=== PATIENT | male | born 1955 | race Caucasian/White ===

== ENCOUNTER → 2016-07-28 | Outpatient (CLI) | payer BC ==
[2016-07-28 10:17] LABS: ALT 32 U/L (21-72); AST 26 U/L (17-59); Anion Gap 9 mmol/L; Blood Urea Nitrogen 29 mg/dL (9-20); Carbon Dioxide 24 mmol/L (22-30); Chloride 104 mmol/L (98-107); Cholesterol 186 mg/dL (<200); Glucose 108 mg/dL (74-99); HDL Cholesterol 53 mg/dL (40-60); Non-African American GFR(MDRD) >60 (>60 ml/min/1.73 sqM); Sodium 137 mmol/L (137-145); Triglycerides 142 mg/dL (<150)
[2016-07-28 10:34] LABS: Potassium 4.3 mmol/L (3.5-5.1)
== END ==
LOC: LABWHC1 09:34
PROVIDERS: ATTEND Internal Medicine Interventional Cardiology
DX: E78.2 Mixed hyperlipidemia (principal); I10 Essential (primary) hypertension
CPT/HCPCS: 36415; 80048; 80061; 84450; 84460

== ENCOUNTER 2016-09-01 05:55 | Inpatient (IN) | payer BC ==
[2016-08-27 14:46] VITALS: BMI 41.8
[~2016-09-01 05:55] MED LIST: ACETAMINOPHEN TAB 500 MG TAB PO ONE; DEXAMETHASONE SOD PHOSPHATE 10 MG/ML 1 ML VIAL IV ONE; MELOXICAM 7.5 MG TAB PO ONE; ONDANSETRON 4 MG/2 ML VIAL IVP ONE; TRANEXAMIC ACID 1,000 MG in SODIUM CHLORIDE 0.9% 100 ML IVPB ONE; ceFAZolin 3 GM in SODIUM CHLORIDE 0.9% 100 ML IVPB ONE
[2016-09-01] MEDS: LACTATED RINGERS 1,000 ML IV SCH (06:41)
[2016-09-01] MEDS ORDERED: LIDOCAINE 1% 20 ML VIAL (10MG/ML) FOR IV START INTRADERMA ONE (06:42)
[2016-09-01 07:03] LABS: INR 1.2 (<1.1); Prothrombin Time 11.8 sec (9.0-12.0)
[2016-09-01] MEDS ORDERED: PROPOFOL 10 MG/ML 20 ML VIAL IV ONE (07:10)
[2016-09-01] MEDS ORDERED: HYDROmorphone (PF) 1 MG/ML ONE (07:10)
[2016-09-01] MEDS ORDERED: SODIUM CHLORIDE 0.9% 100 ML BAG ONE (07:10)
[2016-09-01] MEDS ORDERED: TRANEXAMIC ACID 1,000 MG/10 ML VIAL ONE (07:10)
[2016-09-01] MEDS ORDERED: LIDOCAINE 1% INJ 10MG/ML (20 ML MDV) ONE (07:10)
[2016-09-01] MEDS ORDERED: ceFAZolin 3,000 MG in SODIUM CHLORIDE 0.9% IRRIGATIO 3,000 ML IRRIGATION ONE (07:10)
[2016-09-01] MEDS ORDERED: HEPARIN SODIUM,PORCINE 10,000 UNIT/ML 1 ML VIAL ONE (07:10)
[2016-09-01] MEDS ORDERED: fentaNYL (PF) 50 MCG/ML 2 ML AMP ONE (07:10)
[2016-09-01] MEDS ORDERED: SODIUM CHLORIDE 0.9% IRRIG 1,000 ML BTL IRRIGATION ONE (07:10)
[2016-09-01] MEDS ORDERED: diphenhydrAMINE 50 MG/ML 1 ML VIAL ONE (07:10)
[2016-09-01] MEDS ORDERED: MIDAZOLAM 2 MG/2 ML VIAL ONE (07:10)
[2016-09-01] MEDS ORDERED: KETAMINE 10 MG/ML 20 ML VIAL ONE (07:10)
[2016-09-01] MEDS: ROPIVACAINE 246.25 MG, EPINEPHrine 0.5 MG, KETOROLAC 30 MG, cloNIDine HCL/PF 80 MCG, WA... MISCELLANE ONE ×10 (07:41→08:45)
[2016-09-01] MEDS ORDERED: HYDROmorphone 1 MG/ML 1 ML SYRINGE IVP PRN ×3 (09:17)
[2016-09-01] MEDS ORDERED: NALOXONE 0.4 MG/ML 1 ML VIAL IV PRN (09:17)
[2016-09-01] MEDS ORDERED: HYDROcodone/APAP 5-325MG 1 EACH TAB PO PRN (09:17)
[2016-09-01] MEDS ORDERED: MAGNESIUM HYDROXIDE 2,400 MG/10 ML CUP PO PRN (09:17)
[2016-09-01] MEDS ORDERED: ONDANSETRON 4 MG/2 ML VIAL IVP PRN (09:17)
[2016-09-01] MEDS ORDERED: DIAZEPAM 5 MG TAB PO PRN (09:17)
--- NOTE | 2016-09-01 09:20 | P.OP ---
Date of Procedure: 09/01/16 Preoperative Diagnosis: Severe osteoarthritis right hip Postoperative Diagnosis: Severe osteoarthritis right hip Procedure(s) Performed: Right total hip arthroplasty with a direct anterior approach Implants: Vega and nephew Polarstem size 6 standard Vega [employer] Nephew R3, 3 hole acetabular shell, 54 mm Vega [employer] Nephew reflection 6.5 mm cancellus screw, 20 mm 2 Vega [employer] Nephew R3, XLPE 20 acetabular liner Vega & Nephew Oxinium femoral head 36 m, +0 All components were press-fit. The articulation is ceramic on polyethylene. Anesthesia: spinal Surgeon: Kenneth Jauregui Director Of Customer Acquisition #1: Adilene Bledsoe Director Of Customer Acquisition #2: Tina Harrell Estimated Blood Loss (ml): 450 (180 mL returned with Cell Saver) Pathology: other (Femoral head) Condition: stable Disposition: PACU Indications for Procedure: After failure of conservative treatment we discussed the surgical and nonsurgical treatment options at length. Patient wishes to proceed with a total hip arthroplasty with a direct anterior approach. Complications specific to this procedure were discussed at length, including but not limited to infection, leg length discrepancy, dislocation, and nerve injury. Patient is aware of all these complications and informed consent was obtained Operative Findings: The operative findings are consistent with severe osteoarthritis of the right hip Description of Procedure: Patient was seen and evaluated in the preoperative area, consent was reviewed, and the surgical site was marked with a skin marker. Patient was then brought to the operating room and given prophylactic antibiotics intravenously. 1 g of Tranexamic acid was also given. A spinal anesthetic was administered by the anesthesia department. The patient was then placed on the Chalmers table with the bony prominences well-padded. The hip area was then prepped and draped in usual sterile fashion. A universal timeout was then performed, which confirmed the patient's name, surgical site, ALLERGIES, and procedure being performed. Next the incision site was located at 1 cm distal and 1 cm lateral to the anterior superior iliac spine. The skin and subcutaneous tissues were sharply incised. Incision was carefully dissected down to the fascia overlying the tensor fascia mariella muscle. This fascia was then incised in line with the incision. Next, using blunt finger dissection, the tensor fascia mariella muscle was dissected off its investing fascia. The muscle was then carefully retracted laterally with a cobra retractor over the lateral neck of the femur. Next, the circumflex vessels were identified and cauterized using the AquaMantis device. The anterior hip capsule was then exposed. The capsule was then opened and an inverted T fashion. Retention sutures were placed in the inferior arms of the capsule. Cobra retractors were then placed intracapsularly. The proximal femur was then visualized. The femoral neck was then osteotomized appropriate level above the lesser trochanter. Small amount of traction was placed with the Chalmers table. A small wedge of bone was then removed from the remaining femoral head. Next, using a corkscrew femoral head was easily removed from the acetabulum. On gross visual inspection, the femoral head had complete loss of articular cartilage in multiple periarticular osteophytes. Attention was then turned to the acetabulum. the acetabulum was exposed and any remaining labrum was excised. Sequential reaming of the acetabulum was performed using fluoroscopic guidance. When the appropriate size was reached, a trial was then placed. The position and fit of the trial was checked with fluoroscopy. The trial was then removed. Then, using fluoroscopic guidance, the final implant was impacted at 20 of anteversion and 40 of abduction, and fully seated in the acetabulum. 2 screws were then placed in the acetabulum. Again fluoroscopy was used to check position of the screws. Next, the liner was then impacted, with a 20 elevated liner located in the anterior superior quadrant. Component locking was confirmed. Attention was then directed to the femur. With the aid of the Chalmers table, the femur was externally rotated to approximately 130, extended, and abducted under the opposite leg. A side hook was then placed under the proximal femur, and the side hook elevator was used to elevate the proximal femur. Retractors were then placed. A capsular release was performed, as well as a release of the conjoined tendon, which afforded excellent visualization of the proximal femur. Next, a box osteotome was used to lateralize the proximal femur. A merchandise supervisor was then used to locate the femoral canal. Sequential broaching was then performed with appropriate size which afforded excellent fixation in the proximal femur. A trial was then placed with appropriate head and neck, and the hip was gently reduced with the aid of the Chalmers table. Fluoroscopy was then used to check position of the components, as well as to ensure equal leg lengths. The hip was then gently dislocated and the trials were then removed. Final implants were then impacted and the hip was again reduced. Final fluoroscopic x-rays confirmed that the components were in anatomic position, as well as equal leg lengths. The hip was also taken through range of motion, and found to be stable. The hip was then copiously irrigated with antibiotic solution with pulsatile lavage. The hip was then irrigated with Irrisept solution. The soft tissues were then injected with a ropivacaine solution, which consisted of 246.25 mg of ropivacaine, 0.5 mg of epinephrine, 30 mg of Toradol, 80 g of clonidine, and 48.45 mL of sterile water, for a total of 100 mL of fluid injected. A second dose of 1 g of Tranexamic acid was also given. the fascia was then closed with 2-0 strata fix suture. The subcutaneous tissue was closed with 3-0 Vicryl. The subcuticular tissue was closed with 3-0 strata fix suture. The skin was then closed with Dermabond tape. The patient was then transferred to the recovery room in stable condition. The assistant women's tennis coach SHIRA Loya was required due to the complexity of surgery , and the need for skilled rn surgical pcu for positioning, draping, exposure , retraction, and closure of the wound.
--- NOTE | 2016-09-01 09:26 | FL ---
Fluoroscopy INDICATION: Pain FINDINGS: Fluoroscopy time: 54 seconds. Images obtained: 0. IMPRESSIONS: 1. Documentation of fluoroscopy.
--- NOTE | 2016-09-01 09:27 | XR ---
Fluoroscopy INDICATION: Pain FINDINGS: Fluoroscopy time: 54 seconds. Images obtained: 3. IMPRESSIONS: 1. Documentation of fluoroscopy.
[2016-09-01] MEDS: HYDROmorphone 1 MG/ML 1 ML SYRINGE IVP PRN ×2 (09:40→09:49)
--- NOTE | 2016-09-01 10:06 | XR ---
Fluoroscopy INDICATION: Pain FINDINGS: Images obtained: 1. No fracture is evident. IMPRESSIONS: 1. Documentation of fluoroscopy. 2. No fracture post right hip replacement.
[2016-09-01] MEDS: SODIUM CHLORIDE 0.9% 1,000 ML IV SCH ×2 (10:37→21:05)
[2016-09-01] MEDS: HYDROcodone/APAP 5-325MG 1 EACH TAB PO PRN ×3 (13:00→23:36)
[2016-09-01] MEDS: ceFAZolin 2 GM in SODIUM CHLORIDE 0.9% 100 ML IVPB SCH ×2 (15:57→23:37)
[2016-09-01] MEDS ORDERED: WARFARIN 7.5 MG TAB PO ONE (18:00)
--- NOTE | 2016-09-01 18:23 | CONS ---
DATE OF CONSULTATION: 09/01/2016 REASON FOR CONSULTATION: Advice regarding hypertension and other medical issues, requested by Orthopedic Surgery. HISTORY OF PRESENT ILLNESS: This 60-year-old gentleman with a past medical history hypertension, hyperlipidemia, history of DJD, history of sleep apnea, history of back surgery, being followed by Dr. Livingston in the outpatient setting, underwent right total hip joint arthroplasty with a direct anterior approach for severe DJD of the right hip by Dr. Jauregui. There is no history of any fever, rigor, or chills. No history of any headache, loss of consciousness. No chest pain, palpitations, shortness of breath, hematochezia, melena at this time. PAST MEDICAL HISTORY: 1. History of hypertension. 2. Hyperlipidemia. 3. DJD. 4. Sleep apnea. 5. Back surgery. HOME MEDICATIONS: 1. Coumadin 5 mg p.o. Wednesday, , and Coumadin 7.5 mg Wednesday, Wednesday, Wednesday, Wednesday, Wednesday. 2. Flomax 0.4 mg at bedtime. 3. Lopressor 25 mg p.o. b.i.d. ALLERGIES: MORPHINE. FAMILY HISTORY: Cancer in the family. SOCIAL HISTORY: Previous history of smoking. No current smoking or alcohol intake. REVIEW OF SYSTEMS: ENT: No diminishing hearing. No diminished vision. CARDIOVASCULAR: No angina, palpitations. RESPIRATORY SYSTEM: As mentioned earlier. GI: As mentioned earlier. : No dysuria. NERVOUS SYSTEM: No numbness or weakness. ALLERGY/IMMUNOLOGY: No asthma, hayfever. MUSCULOSKELETAL: As mentioned earlier. HEMATOLOGY/ONCOLOGY: No history of anemia. ENDOCRINE: No history of diabetes, hypothyroidism. CONSTITUTIONAL: As mentioned earlier. DERMATOLOGY: Negative. RHEUMATOLOGY: Negative. PSYCHIATRY: As mentioned earlier. PHYSICAL EXAMINATION: Patient is alert and oriented x3. Pulse 59. Blood pressure 107/64. Respiratory rate 20. Temperature normal. Pulse ox 94% on room air. HEENT: Conjunctivae normal. Oral mucosa moist. NECK: No jugular venous distention. No carotid bruit. No lymph node enlargement. CARDIOVASCULAR SYSTEM: S1 normal. S2 normal. No S3. No S4. Ejection systolic murmur present. RESPIRATORY SYSTEM: Breath sounds diminished at the bases. No rhonchi. No crackles. ABDOMEN: Soft, non-tender. No mass palpable. LEGS: No edema. No swelling. Status post right hip arthroplasty. NERVOUS SYSTEM: Higher functions as mentioned earlier. Moves all 4 limbs. No focal motor or sensory deficit. LYMPHATICS: No lymph node palpable in neck, axillae or groin. SKIN: No ulcer, rash, bleeding. LABS: INR is 1.2. ASSESSMENT: 1. Status post right total hip joint arthroplasty. 2. Hypertension. 3. Hyperlipidemia. 4. Degenerative joint disease. 5. Sleep apnea. 6. History of back surgery. 7. History of aortic valve replacement. 8. Remote history of nicotine dependence. 9. Obesity with body mass index of 41.8. RECOMMENDATIONS AND DISCUSSION: In this 60-year-old gentleman who presented after surgery, at this time I recommend to continue current medications, continue symptomatic treatment. I recommend DVT prophylaxis, incentive spirometry. Resume the home medications. Coumadin may be reinitiated when okay with Orthopedics. INR is 1.2. Continue to monitor. Further recommendations to follow.
[2016-09-01] MEDS: TAMSULOSIN 0.4 MG CAP.ER.24H PO SCH (21:04)
[2016-09-01] MEDS: METOPROLOL TARTRATE 25 MG TAB PO SCH (21:04)
[2016-09-01] MEDS: SENNOSIDES-DOCUSATE SODIUM 1 EACH TAB PO SCH (21:04)
[2016-09-01] MEDS: DIAZEPAM 5 MG TAB PO PRN (21:04)
[2016-09-01] MEDS: hydrOXYzine PAMOATE 25 MG CAP PO PRN (23:37)
[2016-09-02] MEDS: LACTATED RINGERS 1,000 ML IV SCH (00:39)
[2016-09-02] MEDS: HYDROcodone/APAP 5-325MG 1 EACH TAB PO PRN ×2 (05:47→11:11)
[2016-09-02] MEDS: hydrOXYzine PAMOATE 25 MG CAP PO PRN ×3 (05:48→16:29)
[2016-09-02 07:58] LABS: INR 1.1 (<1.1); Prothrombin Time 11.3 sec (9.0-12.0)
[2016-09-02 08:01] LABS: Basophils % (A) 0 %; CH 27.5; Eosinophils # (A) 0.1 k/uL (0-0.7); Eosinophils % (A) 1 %; HCT 36.2 % (39.0-53.0); HDW 2.68; Luc # (Auto) 0.17; Luc % (Auto) 2; Lymphocytes # (A) 1.2 k/uL (1.0-4.8); Lymphocytes % (A) 12 %; MCH 28.4 pg (25.0-35.0); MCHC 33.8 g/dL (31.0-37.0); MCV 83.9 fL (80.0-100.0); Mean Platelet Volume 6.7; Monocytes # (A) 0.7 k/uL (0-1.0); Monocytes % (A) 7 %; Neutrophils # (A) 7.7 k/uL (1.3-7.7); Neutrophils % (A) 78 %; RBC 4.31 m/uL (4.30-5.90); RDW 14.6 % (11.5-15.5); WBC 9.9 k/uL (3.8-10.6)
[2016-09-02 08:03] LABS: HGB 12.2 gm/dL (13.0-17.5)
--- NOTE | 2016-09-02 08:12 | P.PN ---
Subjective Principal diagnosis: Status post total right hip arthroplasty. This is a well-appearing 60-year-old male who is status post total right hip arthroplasty. This is postop day #1. Patient was seen and evaluated at bedside by Dr. Jauregui. Patient has been up and walking, but patient has not been evaluated by physical therapy yet. Patient has no new complaints and is doing well. Objective - Vital Signs Vital signs: Vital Signs Temp 98.6 F 09/02/16 01:52 Pulse 63 09/02/16 01:52 Resp 16 09/02/16 01:52 BP 138/79 09/02/16 01:52 Pulse Ox 97 09/02/16 01:52 Intake & Output 09/01/16 09/02/16 09/02/16 18:59 06:59 18:59 Intake Total 991 2009 Output Total 450 Balance 541 2009 Weight 136.078 kg Intake: IV 751 Intake, IV Titration 880 Amount Sodium Chloride 0.9% 1, 880 000 ml @ 80 mls/hr IV . [id number] ROD Rx#:[id number] Oral 240 1130 Output: Estimated Blood Loss 450 Other: Voiding Method Toilet # Voids 2 1 - Exam Vital signs are stable. Calf is soft and nontender. Dressing is clean, dry, and intact. Neurovascular status intact. Patient has full foot and ankle motion. - Labs CBC & Chem 7: 09/02/16 07:28 Labs: Abnormal Lab Results - Last 24 Hours (Table) 09/02/16 Range/Units 07:28 Hgb 12.2 L D (13.0-17.5) gm/dL Hct 36.2 L (39.0-53.0) % Assessment and Plan (1) History of total right hip arthroplasty Status: Acute (2) Osteoarthritis of right hip Status: Acute Plan: Continue routine postop care. Continue antocoagulation. Weightbearing as tolerated with a walker Daily dressing changes, keep incision clean and dry Possible discharge home tomorrow.
[2016-09-02] MEDS: MELOXICAM 7.5 MG TAB PO SCH (09:25)
[2016-09-02] MEDS: METOPROLOL TARTRATE 25 MG TAB PO SCH ×2 (09:25→20:51)
[2016-09-02] MEDS: DIAZEPAM 5 MG TAB PO PRN ×2 (11:11→20:52)
[2016-09-02] MEDS: SODIUM CHLORIDE 0.9% 1,000 ML IV SCH ×2 (11:50→20:51)
[2016-09-02] MEDS ORDERED: HYDROcodone/APAP 7.5-325MG 1 EACH TAB PO PRN (14:19)
[2016-09-02] MEDS: HYDROcodone/APAP 7.5-325MG 1 EACH TAB PO PRN ×2 (16:29→20:52)
[2016-09-02] MEDS ORDERED: WARFARIN 7.5 MG TAB PO ONE (18:00)
--- NOTE | 2016-09-02 18:28 | PN ---
DATE OF SERVICE: 09/02/2016 This 60-year-old gentleman who was admitted after right total hip joint arthroplasty is being closely monitored. Patient is complaining of some pain after walking. No fever. No cough. On exam, alert and oriented x3. Pulse 73, blood pressure 130/75, respiration 19, temperature 97.9, pulse ox 96% on room air. HEENT: Conjunctivae normal. NECK: No jugular venous distention. CARDIOVASCULAR SYSTEM: S1, S2 muffled. RESPIRATORY SYSTEM: Breath sounds diminished at the bases. No rhonchi. No crackles. ABDOMEN: Soft, non-tender. LEGS: Status post right hip arthroplasty. NERVOUS SYSTEM: No focal deficit. LABS: Hemoglobin 12.2. ASSESSMENT: 1. Status post right total hip joint arthroplasty. 2. Anemia, normocytic; possible dilutional. 3. Hypertension. 4. Hyperlipidemia. 5. Degenerative joint disease. 6. Sleep apnea. 7. History of back surgery. 8. History of aortic valve replacement. 9. Remote history of nicotine dependence. 10. Obesity; body mass index of 41.8. RECOMMENDATIONS AND DISCUSSION: I recommend to continue with the current medications, continue with symptomatic treatment. otherwise, closely follow with Orthopedic Surgery. Continue the rest of the medications. Further recommendations to follow. MTDD
[2016-09-02] MEDS: SENNOSIDES-DOCUSATE SODIUM 1 EACH TAB PO SCH (20:51)
[2016-09-02] MEDS: TAMSULOSIN 0.4 MG CAP.ER.24H PO SCH (20:51)
[2016-09-03] MEDS: LACTATED RINGERS 1,000 ML IV SCH (01:28)
[2016-09-03 02:55] VITALS: RESP 16
[2016-09-03] MEDS: HYDROcodone/APAP 7.5-325MG 1 EACH TAB PO PRN ×2 (05:27→12:16)
[2016-09-03 07:35] LABS: INR 1.2 (<1.1)
[2016-09-03 08:19] VITALS: BP 117/65; PULSE 69; TEMP 98.1
--- NOTE | 2016-09-03 08:44 | P.DS ---
Providers Date of admission: 09/01/16 05:55 Expected date of discharge: 09/03/16 Attending physician: Kenneth Jauregui Consults: 09/01/16 09:17 Consult Physician Routine Consulting Provider: Shay Saldaña Consult Reason/Comments: medical management and anticoagulation Do you want consulting provider notified?: Yes Primary care physician: Kenneth Livingston - Discharge Diagnosis(es) (1) History of total right hip arthroplasty Current Visit: Yes Status: Acute (2) Osteoarthritis of right hip Current Visit: Yes Status: Acute Hospital Course: This is a 60-year-old male with known history of degenerative arthritis of the right hip. The patient presents for evaluation. After discussion and consideration patient elects to proceed with total hip arthroplasty. The patient is seen preoperatively by Dr. Jauregui and cleared for surgery. Patient is admitted to [facility] on 09/01/2016 for total hip arthroplasty. The procedures performed without complication or sequelae. The patient is doing well postoperatively. Labs and vital signs are stable on day of discharge. On day of discharge patient's hip incision is healing well. There is minimal erythema. There is no drainage noted at this time. There is minimal soft tissue swelling to the hip and thigh. Patient has full foot and ankle motion without difficulty or pain. Neurovascular status to the right lower extremity is intact. Patient is discharged home in good condition.Please see med rec for accurate list of home medications. Plan - Discharge Summary New Discharge Prescriptions: HYDROcodone/APAP 7.5-325MG [Carrier 7.5-325] 1 - 2 tab PO Q4-6H PRN #90 tab PRN Reason: Pain Sennosides-Docusate Sodium [Senokot-S] 1 tab PO BID #60 tablet Discharge Medication List Metoprolol Tartrate [Lopressor] 25 mg PO BID 08/27/16 [History] Tamsulosin [Flomax] 0.4 mg PO HS 08/27/16 [History] Warfarin Sodium [Warfarin Sodium] 7.5 mg PO SUTUWEFRSA 08/27/16 [History] Warfarin [Coumadin] 5 mg PO MOTH 08/27/16 [History] HYDROcodone/APAP 7.5-325MG [Carrier 7.5-325] 1 - 2 tab PO Q4-6H PRN #90 tab [Rx] Sennosides-Docusate Sodium [Senokot-S] 1 tab PO BID #60 tablet 09/03/16 [Rx] Follow up Appointment(s)/Referral(s): [facility], [NON-STAFF] - 1 Week Kenneth Jauregui DO [Doctor of Osteopathic Medicine] - 2 Weeks Activity/Diet/Wound Care/Special Instructions: Weightbearing as tolerated with walker May shower after 2 days if no drainage from the incision Continue anticoagulation, medicine to manage. Follow-up with [facility] in 2 weeks with any questions or concerns Discharge Disposition: HOME WITH HOME HEALTH SERVICES
[2016-09-03] MEDS: MELOXICAM 7.5 MG TAB PO SCH (09:45)
[2016-09-03] MEDS: METOPROLOL TARTRATE 25 MG TAB PO SCH (09:46)
[2016-09-03] MEDS ORDERED: WARFARIN 10 MG TAB PO ONE (18:00)
--- NOTE | 2016-09-04 07:39 | PN ---
DATE OF SERVICE: 09/03/2016 This 60-year-old gentleman who was admitted after right total hip joint arthroplasty is improving significantly. No chest pain, no palpitations, no fever. On exam, alert and oriented x3. Pulse 69, blood pressure 117/65, respirations 16, temperature 98.1. Pulse ox 92% on room air. HEENT: Conjunctivae normal. NECK: No jugular venous distention. CARDIOVASCULAR: S1 and S2, muffled. RESPIRATORY: Breath sounds diminished at the bases. No rhonchi. ABDOMEN: Soft, nontender. LEGS: Status post surgery. NERVOUS SYSTEM: No focal deficits. LABS: Hemoglobin 12.2. ASSESSMENT: 1. Status post right total hip joint arthroplasty. 2. Anemia, normocytic, possibly dilutional. 3. Hypertension, essential. 4. Hyperlipidemia. 5. History of degenerative joint disease. 6. Sleep apnea. 7. Coumadin monitoring. 8. History of back surgery. 9. History of aortic valve replacement. 10. Remote history of nicotine dependence. 11. Obesity, body mass index of 41.8. RECOMMENDATIONS AND DISCUSSION: I recommend to continue current medications, symptomatic treatment. I recommend Coumadin 10 mg today. INR is 1.2. Otherwise, I would also recommend resuming the home dose of Coumadin and continued follow-up with primary physician with close monitoring of PT, INR in 2 to 3 days. Discussed with the bilingual case manager. Discussed with staff. Further recommendations to follow.
== END 2016-09-03 12:49 | disposition home health service (06) | DRG 470 ==
LOC: 2ORMAIN 05:55 → 3SUR 09:16
PROVIDERS: ADMIT Orthopaedic Surgery; ATTEND Orthopaedic Surgery
PROC: 0SR904A Replacement of Right Hip Joint with Ceramic on Polyethylene Synthetic Substitute, Uncemented, Open Approach (ICD-10-PCS; principal; 2016-09-01 07:00)
DX: M16.11 Unilateral primary osteoarthritis, right hip (principal); Z68.41 Body mass index [BMI] 40.0-44.9, adult; I10 Essential (primary) hypertension; E78.5 Hyperlipidemia, unspecified; E66.9 Obesity, unspecified; D64.9 Anemia, unspecified; G47.30 Sleep apnea, unspecified; Z79.01 Long term (current) use of anticoagulants; Z79.899 Other long term (current) drug therapy; Z87.891 Personal history of nicotine dependence; Z95.2 Presence of prosthetic heart valve; Z88.5 Allergy status to narcotic agent
CPT/HCPCS: 73501; 85025; 85610; 86850; 86891; 86900; 86901; 88300

== ENCOUNTER → 2016-12-15 | Outpatient (CLI) | payer BC ==
--- NOTE | 2016-12-16 11:29 | NM ---
EXAMINATION TYPE: NM bone/joint limited DATE OF EXAM: 12/15/2016 COMPARISON: NONE HISTORY: Left knee pain for 6 months. Exaggerated usage of the left knee since a prior right hip repl acement in 2017. TECHNIQUE: After the intravenous administration of 25.2 mCi Tc 99m MDP. Images acquired 4.5 hours p ost injection. Multiple views of the lower limbs including both knees are submitted. No discrepancy is seen between flow between the bilateral knees. Left knee prosthesis is noted. Relat avtar symmetric uptake is seen on immediate and delayed imaging in the femoral and tibial components mo st likely relating to osteoarthritic changes. IMPRESSION: Relatively symmetric uptake in both knees most likely relating to osteoarthritic changes. Correlation with radiograph could be performed if there is clinical concern for prosthetic loosening or other evidence of infection.
== END | disposition home or self-care (01) ==
LOC: RADNMMAIN 10:49
PROVIDERS: ATTEND Orthopaedic Surgery
DX: M25.562 Pain in left knee (principal)
CPT/HCPCS: 78300; A9503

== ENCOUNTER → 2017-04-05 | Outpatient (CLI) | payer BC ==
--- NOTE | 2017-04-06 09:17 | MR ---
EXAMINATION TYPE: MR lumbar spine wo/w con DATE OF EXAM: 04/05/2017 7:37 PM COMPARISON: NONE HISTORY: Neuropathy in feet, prior surgery 1988 CONTRAST: The patient was injected with 13.5 mL intravenous Gadavist gadolinium contrast. Multiplanar, MultiSpin echo imaging of the lumbar spine was performed. L1-L2: Moderate disc desiccation. Circumferential disc bulge. Mild effacement ventral thecal sac. No evidence for herniation or central stenosis. Facet joint arthropathy without foraminal encroachment. L2-L3: Normal disc appearance without desiccation. No herniation, protrusion or disc bulging. No ca nal stenosis is present. Foramina are patent bilaterally. L3-L4: Normal disc appearance without desiccation. No herniation, protrusion or disc bulging. No ca nal stenosis is present. Foramina are patent bilaterally. L4-L5: Mild to moderate disc desiccation. Left paracentral disc protrusion. Left lateral recess steno sis. No evidence for foraminal encroachment. Mild facet joint arthropathy. L5-S1: Left hemilaminectomy change. Enhancing granulation tissue identified. Moderate disc desiccatio n. Posterior disc bulge with the annular tear. Mild effacement ventral thecal sac without central bobbi nosis or lateral recess stenosis. No tammie disc herniation. Facet joint arthropathy left greater than right. Mild left-sided foraminal encroachment. Lumbar segments are intact. No paraspinal masses are identified. Conus medullaris has a normal appe arance. IMPRESSION: 1. Multilevel degenerative disc disease. 2. Small disc protrusion paracentrally and to the left at L4-5 resulting in mild left lateral recess stenosis. 3. Left hemilaminectomy changes at L5-S1. Disc bulge with annular tear as discussed above.
== END | disposition home or self-care (01) ==
LOC: RADMRIMAIN 18:40
PROVIDERS: ATTEND Physical Medicine & Rehabilitation
DX: M48.061 Spinal stenosis, lumbar region without neurogenic claudication (principal); M51.16 Intervertebral disc disorders with radiculopathy, lumbar region; Z98.890 Other specified postprocedural states
CPT/HCPCS: 72158; A9581

== ENCOUNTER → 2017-07-14 | Outpatient (CLI) | payer MEDICAID ==
[2017-07-14 10:58] LABS: ALT 22 U/L (21-72); AST 20 U/L (17-59); Albumin 3.9 g/dL (3.5-5.0); Alkaline Phosphatase 72 U/L (38-126); Anion Gap 12 mmol/L; Blood Urea Nitrogen 22 mg/dL (9-20); Calcium 9.2 mg/dL (8.4-10.2); Carbon Dioxide 24 mmol/L (22-30); Chloride 105 mmol/L (98-107); Cholesterol 146 mg/dL (<200); Glucose 114 mg/dL (74-99); HDL Cholesterol 47 mg/dL (40-60); LDL Cholesterol,Calculated 78 mg/dL (0-99); Potassium 4.4 mmol/L (3.5-5.1); Sodium 141 mmol/L (137-145); Total Bilirubin 1.1 mg/dL (0.2-1.3); Total Protein 6.8 g/dL (6.3-8.2); Triglycerides 106 mg/dL (<150)
== END | disposition home or self-care (01) ==
LOC: LABWHC1 10:23
PROVIDERS: ATTEND Internal Medicine Interventional Cardiology
DX: E78.2 Mixed hyperlipidemia (principal)
CPT/HCPCS: 36415; 80053; 80061

== ENCOUNTER → 2020-03-04 | Outpatient (CLI) | payer MEDICARE, BC ==
--- NOTE | 2020-03-04 14:44 | US ---
EXAMINATION TYPE: US pelvic limited DATE OF EXAM: 03/04/2020 COMPARISON: None. CLINICAL HISTORY: 64-year-old male N40.1 PROSTATIC HYPERPLASIA, R97.20 ELEVATED PROSTATE ANTIGEN. Dif ficulty urinating and intermittent pelvic pain x 2 weeks TECHNIQUE: Transabdominal sonographic images of the pelvis were acquired. FINDINGS: EXAM MEASUREMENTS: Bladder pre void: 13.0 x 8.9 x 9.0 cm (535.1 mL) Bladder post void: 11.5 x 6.5 x 8.0 cm (311.07 mL) Harbor Engineer notes: Patient unable to tolerate transrectal US of prostate, thus transabdominal prostat e limited views were obtained with prostate volume measuring 33 mL (normal = <30mL) Bladder Jets: Visualized Harbor Engineer notes: Patient felt like he was unable to void completely IMPRESSION: 1. Patient unable to tolerate transrectal ultrasound of the prostate gland. Transabdominal imaging wa s performed. Prostate gland mildly enlarged with a volume of 33 mL. 2. Findings compatible with urinary retention with a postvoid bladder volume of 311 mL.
== END | disposition home or self-care (01) ==
LOC: RADUSWWP 10:50
PROVIDERS: ATTEND Family Medicine
DX: N40.0 Benign prostatic hyperplasia without lower urinary tract symptoms (principal)
CPT/HCPCS: 76857

== ENCOUNTER → 2020-11-18 | Outpatient (CLI) | payer MEDICARE, BC | END | disposition home or self-care (01) | CPT/HCPCS: 82565; 84520; 71275; 36415; Q9967 ==

== ENCOUNTER → 2021-11-28 | Outpatient (CLI) | payer MEDICARE, BC ==
--- NOTE | 2021-11-28 10:15 | CT ---
EXAMINATION TYPE: CT angio chest CT DLP: 1882.4 mGycm, Automated exposure control for dose reduction was used. DATE OF EXAM: 11/28/2021 9:57 AM COMPARISON: CT angiogram chest 11/18/2020. CLINICAL INDICATION:Male, 65 years old with history of THORACIC AORTIC ANEURYSM, WITHOUT RUPTURE; THO RACIC AORTIC ANEURYSM, WITHOUT RUPTURE TECHNIQUE/CONTRAST: CTA scan of the thorax is performed with IV Contrast, patient injected with 100 ML mL of Isovue 370, pulmonary embolism protocol. MIP images are created and reviewed. FINDINGS: Lungs/Pleura: Low lung volumes are present. No evidence of focal consolidation or pneumothorax. There remains trace bilateral pleural effusions. Airway: Large airways are patent. Heart: The heart is mildly enlarged for size. Moderate coronary artery atherosclerosis is present. Vasculature: The ascending thoracic aorta measures up to 4.9 cm in dilation. This may be fractionally larger than prior when measuring similarly. There is some motion artifact on prior imaging. The desc ending thoracic aorta is similar measuring 3.3 cm with smooth tapering from the aortic arch. There is aortic valve calcifications present. Aortic valve repair changes are present. No evidence for aortic dissection. The internal carotid arteries have a medialized course posterior to the pharynx. Mediastinum: No gross evidence of adenopathy. Musculoskeletal: No acute osseous abnormalities. Sternotomy wires are present. Mild multilevel degene ration changes are present. Soft Tissues: Unremarkable. Lower neck: No significant findings. Upper Abdomen: No significant findings. IMPRESSION: 1. Stable to fractionally larger ascending thoracic aorta dilation up to 4.9 cm. Motion artifact on p rior limits measurement and direct comparison. 2. Stable smooth tapered dilation of the proximal descending thoracic aorta measuring up to 3.3 cm. 3. Stable cardiomegaly and trace bilateral pleural effusions.
== END | disposition home or self-care (01) ==
LOC: RADCTMAIN 08:08
PROVIDERS: ATTEND Internal Medicine Interventional Cardiology
DX: J90 Pleural effusion, not elsewhere classified (principal); I51.7 Cardiomegaly
CPT/HCPCS: 82565; 84520; 71275; 36415; Q9967